=== PATIENT | female | born 1940 ===

== ENCOUNTER 2017-11-17 09:08 | Day surgery (SDC) | payer OTHER ==
[2013-05-24 11:47] VITALS: BMI 31.2
[2017-11-17] MEDS ORDERED: Lactated Ringer's 500 ML IV ONE ×2 (09:25)
[2017-11-17] MEDS ORDERED: Propofol 10 mg/ml Inj (20 ML) ONE (11:36)
[2017-11-17 12:02] VITALS: TEMP 98
[2017-11-17 12:28] VITALS: BP 120/55; PULSE 65; RESP 15; O2SAT 100
== END 2017-11-17 12:39 | disposition home or self-care (01) ==
LOC: H.ENDO 09:08
PROVIDERS: ATTEND Internal Medicine Gastroenterology
DX: Z86.010 Personal history of colon polyps (principal); K64.0 First degree hemorrhoids; K57.30 Diverticulosis of large intestine without perforation or abscess without bleeding; E03.9 Hypothyroidism, unspecified; F31.9 Bipolar disorder, unspecified; M19.90 Unspecified osteoarthritis, unspecified site
CPT/HCPCS: G0105; J2001; J2704; J7120